=== PATIENT | female | born 1950 ===

== ENCOUNTER 2021-07-08 15:15 | Outpatient (REF) | payer MEDICARE, MEDICAID, SELFPAY ==
--- NOTE | ~2021-07-08 | CT_ITS ---
EXAMINATION: CT ABDOMEN WITH CONTRAST CLINICAL INFORMATION: Elevated liver function tests. Abdominal pain. COMPARISON: None. TECHNIQUE: Contiguous axial thin section helical images of the abdomen were performed following the administration of oral contrast and 85 mL of Omnipaque 350 intravenous contrast. The data set was reformatted in the coronal and sagittal planes and reviewed on an independent workstation. This CT examination was performed using dose optimization techniques as appropriate, variously including the following: *Automated exposure control *Adjustment of mA and/or kV according to patient size (this includes techniques or standardized protocols for targeted exams where dose is matched to indication/reason for exam; i.e. extremities or head) *Use of iterative reconstruction technique DLP: 960 mGy-cm FINDINGS: LUNG BASES: There is a 1 cm left lower lobe nodule axial image 133 series 4. There is atelectasis or consolidation seen in both lower lobes. There is question of focal dilatation of the posterior basal segment right lower lobe pulmonary artery. This area measures approximately 1.3 x 2 cm axial image 91. LIVER, GALLBLADDER, AND BILIARY TREE: The liver is normal in size, shape and signal. No focal liver lesion is seen. The gallbladder has been removed. There is no intrahepatic biliary duct dilatation. The common bile duct is dilated measuring up to 1.5 cm. No common bile duct stone is appreciated by CT scan. PANCREAS: There is a large duodenal diverticulum adjacent to the head of the pancreas. Pancreas is otherwise unremarkable. The main pancreatic duct does not appear dilated. SPLEEN: Normal. ADRENAL GLANDS AND KIDNEYS: Normal. BOWEL LOOPS: There is a large duodenal diverticulum adjacent to the head of the pancreas. Visualized small and large bowel is otherwise unremarkable. LYMPH NODES: There are small retroperitoneal lymph nodes. No enlarged lymph nodes are seen. There is no ascites. VASCULAR: There is evidence of atherosclerotic disease. No aneurysm is seen. BONES: There is a severe thoracolumbar scoliosis. There are degenerative changes of the spine. CT/CT abdomen w con IMPRESSION: Post cholecystectomy. Dilated common bile duct. Normal caliber intrahepatic bile ducts. This may be normal postcholecystectomy. No common bile duct stone seen by ultrasound. Large duodenal diverticulum adjacent to the head of the pancreas. Small retroperitoneal lymph nodes. No enlarged lymph nodes. 1 cm left lower lobe pulmonary nodule. Atelectasis or consolidation at the lung bases, left greater than right. Question focal dilatation posterior basal segment right lower lobe pulmonary artery. Fleischner guidelines were followed.
[2021-07-08] MEDS: iohexoL 350 MG/ML 100 ML INFUS..BTL IV (17:44)
== END 2021-07-08 15:16 | disposition home or self-care (01) ==
LOC: HO.CT 15:15
PROVIDERS: Visit Provider Family Medicine
DX: R10.9 Unspecified abdominal pain (principal); R17 Unspecified jaundice
CPT/HCPCS: 74160; Q9967